=== PATIENT | female | born 1980 | race African-American/Black ===

== ENCOUNTER 2019-07-12 06:21 | Day surgery (SDC) | payer OTHER ==
[~2019-07-12] VITALS: Ht 167.6 cm; Wt 131.8 kg
[~2019-07-12 06:21] MED LIST: SODIUM CHLORIDE 0.9% 1,000 ML IV ONE
[2019-07-12] MEDS ORDERED: PROPOFOL 1% 20 ML VIAL IVP ONE (06:22)
[2019-07-12] MEDS ORDERED: ESCI10TA PO (06:45)
[2019-07-12] MEDS ORDERED: LEVO75 PO (06:45)
[2019-07-12] MEDS ORDERED: FERR-82 PO (06:45)
[2019-07-12] MEDS ORDERED: SODIUM CHLORIDE 0.9% 1,000 ML IV ONE (07:00)
== END 2019-07-12 10:20 | disposition home or self-care (01) ==
LOC: SURGERY 06:21
PROVIDERS: ATTEND Internal Medicine Gastroenterology
DX: K29.50 Unspecified chronic gastritis without bleeding (principal); K29.80 Duodenitis without bleeding; K21.0 Gastro-esophageal reflux disease with esophagitis; E03.9 Hypothyroidism, unspecified; F32.9 Major depressive disorder, single episode, unspecified; E66.01 Morbid (severe) obesity due to excess calories; G47.33 Obstructive sleep apnea (adult) (pediatric); J45.909 Unspecified asthma, uncomplicated; Z79.899 Other long term (current) drug therapy; Z98.890 Other specified postprocedural states
CPT/HCPCS: 36415; 43239; 84702; 88305; 88312; 88313; C1769; J2704; J7030